=== PATIENT | male | born 1975 | race Caucasian/White ===

== ENCOUNTER 2016-12-18 14:16 | Emergency (ER) | payer BC ==
[2016-12-18 14:35] LABS: BASOPHIL COUNT 0.1 K/uL (0-0.1); EOSINOPHIL (%) 1.2 % (0-5); EOSINOPHIL COUNT 0.1 K/uL (0-0.3); HEMATOCRIT 48.1 % (38.0-50.0); IMMATURE GRANULOCYTE (%) 0.7 % (0.0-0.7); IMMATURE GRANULOCYTE COUNT 0.1 K/uL; INSTRUMENT ABS NEUTROPHIL CT 6.6 K/uL; LYMPHOCYTE COUNT 4.4 K/uL (1.0-2.8); MCH 31.2 PG (29.0-34.0); MCHC 34.9 G/DL (30.0-36.0); MCV 89.4 FL (86-99); MEAN PLAT.VOLUME 8.9 uM^3 (9.0-12.4); MONOCYTE (%) 6.2 % (3-12); MONOCYTE COUNT 0.7 K/uL (0-0.8); NEUTROPHIL (%) 54.6 % (45-76); NEUTROPHIL COUNT 6.6 K/uL (1.8-6.4); PLATELET COUNT 296 K/uL (156-360); RBC DIS.WIDTH-CV 12.9 % (11.8-14.6); RBC DIS.WIDTH-SD 42.3 % (39-53); RED BLOOD COUNT 5.38 M/uL (4.00-5.50)
[2016-12-18 14:45] LABS: AMYLASE 89 IU/L (1-118); CHLORIDE 101 mEq/L (99-109); POTASSIUM 3.7 mEq/L (3.7-5.4); SODIUM 137 mEq/L (136-147)
[2016-12-18 14:47] LABS: GLUCOSE 101 mg/dL (70-99)
[2016-12-18 14:48] LABS: ANION GAP 14 MEQ/L (2-14)
[2016-12-18 14:50] LABS: SERUM ETHYL ALCOHOL 342 mg/dL
[2016-12-18 14:51] LABS: GFR ESTIMATE (CALCULATED) > 59 mL/min/
[2016-12-18 14:52] LABS: UREA NITROGEN (BUN) 9 mg/dL (9-23)
[2016-12-18 14:54] LABS: LIPASE 76 U/L (1.0-51.0)
[2016-12-18] MEDS ORDERED: ATENOLOL100 MG PO (15:15)
[2016-12-18] MEDS ORDERED: ALPRAZOLAM1 MG PO (15:15)
[2016-12-18] MEDS ORDERED: OLMESARTAN MEDO40 MG PO (15:16)
[2016-12-18] MEDS ORDERED: FLUOXETINE HCL40 MG PO (15:16)
[2016-12-18] MEDS ORDERED: ZOLPIDEM TARTRA10 MG PO (15:19)
[2016-12-18 18:14] LABS: ADD MIUA? NO; BILIRUBIN NEGATIVE; BLOOD NEGATIVE; COLOR COLORLESS ((YELLOW)); GLUCOSE (STRIP) NEGATIVE; KETONES NEGATIVE; LEUKOCYTES NEGATIVE; NITRITE NEGATIVE; PROTEIN (STRIP) NEGATIVE; SPECIFIC GRAVITY 1.011 (1.000-1.030); UCUL ADDED? NO; UROBILINOGEN 0.2 MG/DL (0.2-1.0)
[2016-12-18 18:31] LABS: ADD MEDTOX COMMENT Y; AMPHETAMINE NEGATIVE (500 ng/mL); BARBITURATES NEGATIVE (200 ng/mL); BENZODIAZEPINES NEGATIVE (150 ng/mL); COCAINE NEGATIVE (150 ng/mL); INTERNAL CONTROLS VALID? YES; METHADONE NEGATIVE (200 ng/mL); METHAMPHETAMINE NEGATIVE (500 ng/mL); OPIATES (MORPHINE) PRESUMPTIVE POSITIVE (100 ng/mL); OXYCODONE NEGATIVE (100 ng/mL); PHENCYCLIDINE NEGATIVE (25 ng/mL); PROPOXYPHENE NEGATIVE (300 ng/mL); THC CANNABINOIDS NEGATIVE (50 ng/mL); TRICYCLIC ANTIDEPRESSANTS NEGATIVE (300 ng/mL)
[2016-12-18] MEDS ORDERED: KEFLEX500 MG PO (18:31)
[2016-12-18] MEDS ORDERED: TRAMADOL HCL50 MG PO (18:32)
[2016-12-18 18:51] LABS: OPIATES QUANTITATIVE VALUE 0 NG/ML
== END 2016-12-18 18:52 | disposition home or self-care (01) ==
LOC: TRA 14:16
PROVIDERS: Emergency Medicine
PROC: 3E0234Z Introduction of Serum, Toxoid and Vaccine into Muscle, Percutaneous Approach (ICD-10-PCS; principal; 2016-12-18)
PROC: 0HQ2XZZ Repair Right Ear Skin, External Approach (ICD-10-PCS; principal; 2016-12-18)
DX: S01.311A Laceration without foreign body of right ear, initial encounter (principal); F10.10 Alcohol abuse, uncomplicated; Y90.8 Blood alcohol level of 240 mg/100 ml or more; R07.9 Chest pain, unspecified; R06.02 Shortness of breath; R22.2 Localized swelling, mass and lump, trunk; Z23 Encounter for immunization; V86.69XA Passenger of other special all-terrain or other off-road motor vehicle injured in nontraffic accident, initial encounter; I10 Essential (primary) hypertension
CPT/HCPCS: 70450; 71010; 71260; 72125; 72129; 72132; 74177; 80048; 81003; 82150; 83690; 84999; 85025; 86900; 86901; 93005; 99281; 99285; G0480; J2270; J2405